=== PATIENT | female | born 1970 | race Caucasian/White ===

== ENCOUNTER 2020-09-09 13:03 | Outpatient (REF) | payer MEDICARE, MEDICAID, SELFPAY ==
[2020-09-12 23:57] LABS: HPV mRNA E6/E7 Not Detected (Not Detected)
== END 2020-09-09 13:04 | disposition home or self-care (01) ==
LOC: HO.LNP 13:03
PROVIDERS: Visit Provider Obstetrics & Gynecology
DX: Z12.4 Encounter for screening for malignant neoplasm of cervix (principal); R35.0 Frequency of micturition
CPT/HCPCS: 87086; 87624; 88142

== ENCOUNTER 2021-07-04 16:02 | Outpatient (REF) | payer MEDICARE, MEDICAID, SELFPAY ==
--- NOTE | ~2021-07-04 | MM_ITS ---
EXAMINATION: MM SCREENING DIGITAL BREAST TOMOSYNTHESIS, BILATERAL CLINICAL INFORMATION: Screening. Asymptomatic. The lifetime risk of breast cancer based on the Tyrer-Cuzick Model is 10%. COMPARISON: Mammography: 12/12/2015, 11/08/2014 TECHNIQUE: Digital breast tomosynthesis is performed in both the craniocaudal and mediolateral oblique views along with computer-aided detection (CAD). Synthesized 2D images are generated from the tomosynthesis. FINDINGS: There are scattered areas of fibroglandular density (ACR BI-RADS breast composition Category b). There are no significant masses, abnormal calcifications, or other abnormalities. Dystrophic calcification posterior medial left breast related to old shunt tubing again partly visualized. The axilla and skin contours are unremarkable. MM/MM tomosynthesis screening BI IMPRESSION: No mammographic evidence of malignancy. ASSESSMENT: BI-RADS 2: Benign RECOMMENDATION: Routine annual mammography screening. This patient's information was entered into a reminder system with a target due date for their next mammogram.
== END 2021-07-04 16:03 | disposition home or self-care (01) ==
LOC: HO.MAMMO 16:02
PROVIDERS: Visit Provider Internal Medicine
DX: Z12.31 Encounter for screening mammogram for malignant neoplasm of breast (principal)
CPT/HCPCS: 77063; 77067

== ENCOUNTER 2022-07-23 13:51 | Outpatient (REF) | payer MEDICARE, MEDICAID, SELFPAY ==
--- NOTE | ~2022-07-23 | MM_ITS ---
EXAMINATION: MM SCREENING DIGITAL BREAST TOMOSYNTHESIS, BILATERAL CLINICAL INFORMATION: Screening. Asymptomatic. The lifetime risk of breast cancer based on the Tyrer-Cuzick Model is 11.3%. COMPARISON: Mammography: July 04, 2021 and studies dating back to May 20, 2010 TECHNIQUE: Digital breast tomosynthesis is performed in both the craniocaudal and mediolateral oblique views along with computer-aided detection (CAD). Synthesized 2D images are generated from the tomosynthesis. FINDINGS: There are scattered areas of fibroglandular density (ACR BI-RADS breast composition Category b). There are no significant masses, abnormal calcifications, or other abnormalities. Dystrophic calcifications about the medial aspect of the left breast again seen. MM/MM tomosynthesis screening BI IMPRESSION: No significant changes from prior exam. ASSESSMENT: BI-RADS 2: Benign RECOMMENDATION: Routine annual mammography screening. This patient's information was entered into a reminder system with a target due date for their next mammogram.
== END 2022-07-23 13:52 | disposition home or self-care (01) ==
LOC: HO.MAMMO 13:51
PROVIDERS: Visit Provider Internal Medicine
DX: Z12.31 Encounter for screening mammogram for malignant neoplasm of breast (principal)
CPT/HCPCS: 77063; 77067

== ENCOUNTER 2023-08-23 12:13 | Outpatient (REF) | payer MEDICARE, MEDICAID, SELFPAY ==
--- NOTE | ~2023-08-23 | MM_ITS ---
EXAMINATION: MM SCREENING DIGITAL BREAST TOMOSYNTHESIS, BILATERAL CLINICAL INFORMATION: Screening. Asymptomatic. COMPARISON: Mammography: This study is compared with prior exams dating back to 2016. TECHNIQUE: Digital breast tomosynthesis is performed in both the craniocaudal and mediolateral oblique views along with computer-aided detection (CAD). Synthesized 2D images are generated from the tomosynthesis. FINDINGS: There are scattered areas of fibroglandular density (ACR BI-RADS breast composition Category b). There are no significant masses, abnormal calcifications, or other abnormalities. MM/MM tomosynthesis screening BI IMPRESSION: No mammographic evidence of malignancy. ASSESSMENT: BI-RADS BI-RADS 1 - Negative RECOMMENDATION: Routine annual mammography screening. 1 year F/U This examination should not preclude the clinical evaluation of a suspicious palpable abnormality. This patient's information was entered into a reminder system with a target due date for their next mammogram.
== END 2023-08-23 12:14 | disposition home or self-care (01) ==
LOC: HO.MAMMO 12:13
PROVIDERS: PCP Internal Medicine; Visit Provider Internal Medicine
DX: Z12.31 Encounter for screening mammogram for malignant neoplasm of breast (principal)
CPT/HCPCS: 77063; 77067

== ENCOUNTER → 2023-08-23 12:15 | Outpatient (BNV) | payer MEDICARE, MEDICAID, SELFPAY | PROVIDERS: PCP Internal Medicine; Visit Provider Radiology Diagnostic Radiology | DX: Z12.31 Encounter for screening mammogram for malignant neoplasm of breast (principal) | CPT/HCPCS: 77063; 77067 ==

== ENCOUNTER 2024-09-11 13:44 | Outpatient (REF) | payer MEDICARE, MEDICAID, SELFPAY ==
--- NOTE | ~2024-09-11 | MM_ITS ---
EXAMINATION: MM SCREENING DIGITAL BREAST TOMOSYNTHESIS, BILATERAL CLINICAL INFORMATION: Screening. Asymptomatic. COMPARISON: Mammography: Comparison is made with available priors TECHNIQUE: Digital breast mammography with tomosynthesis is performed in both the craniocaudal and mediolateral oblique views along with computer-aided detection (CAD). FINDINGS: There are scattered areas of fibroglandular density (ACR BI-RADS breast composition Category b). Calcified Stent/shunt overlies and obscures the posterior inner left breast. There are no significant masses, abnormal calcifications, or other abnormalities. MM/MM tomosynthesis screening BI IMPRESSION: No mammographic evidence of malignancy. ASSESSMENT: BI-RADS BI-RADS 2 - Benign Findings RECOMMENDATION: Routine annual mammography screening. 1 year F/U This examination should not preclude the clinical evaluation of a suspicious palpable abnormality. This patient's information was entered into a reminder system with a target due date for their next mammogram. Electronically signed by: Ashley Tompkins DO 09/17/2024 06:05 PM BRYAN
== END 2024-09-11 13:45 | disposition home or self-care (01) ==
LOC: HO.MAMMO 13:44
PROVIDERS: PCP Internal Medicine; Visit Provider Internal Medicine
DX: Z12.31 Encounter for screening mammogram for malignant neoplasm of breast (principal)
CPT/HCPCS: 77063; 77067

== ENCOUNTER → 2024-09-11 14:00 | Outpatient (BNV) | payer MEDICARE, MEDICAID, SELFPAY | PROVIDERS: PCP Internal Medicine; Visit Provider Internal Medicine | DX: Z12.31 Encounter for screening mammogram for malignant neoplasm of breast (principal) | CPT/HCPCS: 77063; 77067 ==

== ENCOUNTER 2024-10-19 15:29 | Outpatient (AMB) | payer MEDICARE, MEDICAID, SELFPAY ==
--- OUTSIDE RECORDS SUMMARY | 2024-10-19 15:33 | XMS_ITS ---
Author Organization [facility] Address Unknown Allergies, Adverse Reactions, Alerts Substance Reaction Status Noted Date Resolved Date Latex active 08/12/2022 Problems Problem Status Start Date End Date DISPLACED FRACTURE OF MEDIAL MALLEOLUS OF LEFT TIBIA, SUBSEQUENT ENCOUNTER FOR CLOSED FRACTURE WITH ROUTINE HEALING (Primary) (S82.52XD - ICD-10-CM) ACTIVE 08/12/2022 MUSCLE WEAKNESS (GENERALIZED) (M62.81 - ICD-10-CM) ACT AVINASH 08/12/2022 UNSTEADINESS ON FEET (R26.81 - ICD-10-CM) ACTIVE 08/12/2022 OTHER ABNORMALITIES OF GAIT AND MOBILITY (R26.89 - ICD-10-CM) ACTIVE 08/12/2022 HYPOTHYROIDISM, UNSPECIFIED (E03.9 - ICD-10-CM) ACTIVE 08/12/2022 ESSENTIAL (PRIMARY) HYPERTENSION (I10 - ICD-10-CM) ACT AVINASH 08/12/2022 HYPERLIPIDEMIA, UNSPECIFIED (E78.5 - ICD-10-CM) ACTIVE 08/12/2022 Encounters Encounter Performer Performer Role Encounter Diagnoses Location Date Discharge - Discharged to home or self care - Board and care/assisted living/[facility] 08/12/2022 05:01 pm EST - 08/27/2022 02:30 pm EST Social History
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
--- OUTSIDE RECORDS SUMMARY | 2024-10-19 15:33 | XMS_ITS | Encounter Summary ---
[facility] Address [address] [place] [address] Care Team Providers Care Curriculum Director Name Role Phone Kayy Lindsey MD Primary Care Provider [phone] Reason for Visit * Reason Onset Date Comments Wound Infection 09/25/2024 Encounter Details Date Type Department Care Team (Late st Contact Info) Description 09/25/2024 Telephone Internal Medicine - [place] [address] [facility] [address] [place] [phone] Kayy Lindsey MD 175 [facility] [address] [place] [phone] Wound Infection Social History Tobacco Use Types Packs/Day Years [...] on file documented as of this encounter Progress Notes * Mary Caldera RN - 09/25/2024 3:44 PM EST Call to pt comp field case manager Rachel # [phone], spoke to Rachel Pt has a infected area on leg that now looks infected. Scheduled pt for next day appt * Jesys M Jorge - 09/25/2024 3:32 PM EST Patient cut herself while shaving leg last week- now area appears to be infected. Open wound - red parameter and moist Area documented in this encounter Plan of Treatment Upcoming Encounters Date Type Department Care Team (Late st Contact Info) Description 10/30/2024 2:30 PM EST Office Visit Obstetrics & Gynecology - [facility] [address] [place] [phone] Kristina Sanchez CNM [address] [place] [phone] 11/07/2024 11:45 AM EST Office Visit Urogynecology [address] [phone] Allegra Denise MD [address] [place] [address] [address] [place] [address] 11/13/2024 2:45 PM EDT Office Visit Internal Medicine - [place] 175 [facility] [address] [place] [phone] Kayy Lindsey MD [address] [phone] documented as of this encounter Visit Diagnoses Not on filedocumented in this encounter Care Teams Curriculum Director Relationship Specialty Start Date End Date Kayy Lindsey MD [address] [phone] PCP - General Internal Medicine 07/11/18 documented as of this encounter
--- OUTSIDE RECORDS SUMMARY | 2024-10-19 15:33 | XMS_ITS | Clinical Summary ---
Author Organization 175 [facility] Address [address] [place] [address] Phone Care Team Providers Care Marklogic Developer Name Role Phone Kayy Lindsey MD Primary Care Provider [phone] Allergies Active Allergy Reactions Criticality Noted Date Comments Latex 06/29/2016 Other 05/04/2019 SEASONAL ALLERGIES Medications acetaminophen (TYLENOL) 325 mg tablet Take 1 Tablet by mouth every 6 hours as needed for Pain. 03/16/20 24 Active albuterol HFA (PROAIR HFA ; PROVENTIL HFA ; VENTOLIN HFA) 90 mcg/actuation inhaler Inhale 2 Puffs into the lungs every 6 hours as needed for Cough or Wheezing. 12/03/19 24 Active ascorbic acid (VITAMIN C) 1,000 mg tablet TAKE 1 TABLET BY MOUTH DAILY. 05/18/20 24 Active aspirin 81 mg EC tablet Take 1 Tablet by mouth daily. 05/15/20 24 Active cholecalciferol (VITAMIN D-3) 25 mcg (1,000 unit) capsule TAKE 1 CAPSULE BY MOUTH DAILY EVERY MORNING. 01/03/20 24 Active clotrimazole-be tamethasone (LOTRISONE) 1-0.05 % cream Apply to area sparingly twice a day for up to two weeks 02/16/20 24 026 Active phenylephrine-D M-APAP (VICKS DAYQUIL MULTI-SYMPTOM) 5-10-325 mg capsule Take 5 mL by mouth 2 times daily. 01/24/20 16 Active fexofenadine (JEANNE) 180 mg tablet Take 1 Tablet by mouth daily as needed for Other (allergies). 12/03/19 24 Active FLUoxetine (PROzac) 20 mg capsule Take 1 Capsule by mouth daily. 12/03/19 24 Active fluticasone propionate (FLONASE) 50 mcg/actuation nasal spray 1 Mobile by Nasal route daily. 12/03/19 24 Active dextromethorpha n-guaiFENesin (Diabetic Tussin DM) 10-100 mg/5 mL liquid Take 10 mL by mouth every 6 hours as needed for Cough. 12/03/19 24 Active ibuprofen (ADVIL,MOTRIN) 400 mg tablet Take 1 Tablet by mouth 2 times daily as needed for Pain. 03/26/20 23 Active lamoTRIgine (LaMICtal) 200 mg tablet Take 1 Tablet by mouth 2 Times Daily. 04/29/20 22 Active lamoTRIgine (LaMICtal) 50 mg dispersible tablet Take 1 Tablet by mouth 2 Times Daily. 04/29/20 22 Active levothyroxine (SYNTHROID, LEVOTHROID) 50 mcg tablet TAKE 1 TABLET BY MOUTH DAILY IN THE MORNING ON AN EMPTY STOMACH. 05/18/20 24 Active propranoloL (INDERAL) 20 mg tablet TAKE 1 TABLET BY MOUTH TWICE DAILY 01/03/20 24 Active polyethylene glycol (MIRALAX) 17 gram packet Take 17 g by mouth daily as needed for Constipation . 03/29/20 24 Active traZODone (DESYREL) 50 mg tablet 07/27/20 24 Active medroxyPROGESTE Marco (PROVERA) 10 mg tablet Take 1 tablet (10 mg total) by mouth 1 (one) time each day. for 10 days 10 tablet 08/17/20 24 Active solifenacin (VESICARE) 5 mg tablet Take 1 tablet (5 mg total) by mouth 1 (one) time each day. Swallow tablet whole; do not crush, chew, or split. 90 each 08/21/20 24 025 Active simvastatin (ZOCOR) 20 mg tablet Take 1 tablet (20 mg total) by mouth at bedtime. at bedtime 28 tablet 1 01/29/20 25 Active vibegron (Gemtesa) 75 mg tablet tabletIndicatio ns:OAB (overactive bladder) Take 1 tablet (75 mg total) by mouth 1 (one) time each day. 30 each 10/10/19 25 025 Active simvastatin (ZOCOR) 20 mg tablet TAKE 1 TABLET BY MOUTH DAILY AT BEDTIME 04/21/20 24 025 Discontinued vibegron (Gemtesa) 75 mg tablet tablet TAKE 1 TABLET BY MOUTH DAILY *ORIGINAL CONTAINER* 05/18/20 24 025 Discontinued(Re order) cephalexin (KEFLEX) 500 mg capsuleIndicati ons:Cellulitis and abscess of left lower extremity Take 1 capsule (500 mg total) by mouth 2 (two) times a day for 7 days. 14 each 09/26/19 25 025 Active Problems Problem Noted Date Diagnosed Date fall04/29/2022 Mild intermittent asthma without complication Obstructive sleep apnea 04/02/2019 Overview (06/21/2024): [facility] Polysomnogram: Date 03/26/2019; Wt 170#; BMI 34; SE 23%; SM 37%; REM 0%; RDI 8 (AHI 5), Central apneas 0; Obstructive apneas 0; Mixed apneas 0; hypopneas 11; RERAs 6; average oxygen saturation 92% (lowest 84% - withput saturations <88% for 5% or more of study); PLMs 0. - Obstructive Sleep Apnea - mild overall; no REM; mostly hypopneas; without sleep related hypoventilation by 2019 polysomnogram. Venous insufficiency (chronic) (peripheral) 02/2019 Varicose veins with pain 11/09/2018 Vitamin D deficiency 06/29/2018 Depression with anxiety 04/04/2018 HTN (hypertension) 04/04/2018 Hypothyroidism 04/04/2018 Hyperlipidemia 04/04/2018 Allergic rhinitis 04/04/2018 Seizure disorder 04/04/2018 GERD (gastroesophageal reflux disease) 7 Chronic pain 06/28/2017 Stress incontinence, female 03/11/2017 Leg edema 03/11/2017 Urinary leakage 03/11/2017 Aggression 07/01/2016 Encounters Date Type Department Care Team Description 09/26/2024 11:15 AM EST Office Visit Internal Medicine - [place] 175 [facility] [address] [place] [address] Elaine Moses NP Cellulitis and abscess of left lower extremity (Primary Dx) 09/25/2024 Telephone Internal Medicine - [place] [address] [facility] [address] [place] [address] Kayy Lindsey MD Wound Infection from Last 3 Months Immunizations Name Administration Dates Next Due Influenza Quadrivalent, 0.5m l, preservative free (Fluarix; FluLaval; Fluzone) ages 6mo and older (Afluria) 3yo and older 06/18/2020 Influenza trivalent, 0.5mL (Fluad) 65yo and olde r 06/24/2019,06/28/2017 Influenza, live, intranasal, quadrivalent (FluMist) 2yo to less than 50yo 06/26/2022 Td Tetanus diptheria (Tdvax) 7yo and older 02/21 Surgical History Surgery Date Site/Laterality Comments OTHER SURGICAL HISTORY PROCEDURE: HISTORY OTHER; COMMENT: Creation Of Ventriculo-Peritoneal CSF Shunt Medical History Medical History Date Comments GERD (gastroesophageal reflux disease) DX:GERD (gastroesophageal reflux disease) Aggression 07/01/2016 DX:Aggression Depression with anxiety 04/04/2018 DX:Depre ssion with anxiety HTN (hypertension) 04/04/2018 DX:HTN (hyper tension) Hyperlipidemia 04/04/2018 DX:Hyperlipidemi a Hypothyroidism 04/04/2018 DX:Hypothyroidis m Allergic rhinitis 04/04/2018 DX:Allergic rh initis Seizure disorder (CMS/HCC) 04/04/2018 DX:Se izure disorder (HCC) Stress incontinence, female 03/11/2017 DX:S tress incontinence, female Urinary leakage 03/11/2017 DX:Urinary leaka ge Leg edema 03/11/2017 DX:Leg edema Chronic pain 06/28/2017 DX:Chronic pain Vitamin D deficiency 06/29/2018 DX:Vitamin D deficiency Varicose veins with pain 11/09/2018 DX:Vari cose veins with pain Venous insufficiency (chroni c) (peripheral) 11/09/2018 DX:Venous insufficiency (chr onic) (peripheral) Family History Medical History Relation Name Comments Breast cancer Neg Hx Colon cancer Neg Hx Relation Name Status Comments Father Mother Alive Social History Tobacco Use Types Packs/Day Years Used Date Smoking Tobacco: Never Smokeless Tobacco: Never Alcohol Use Standard Drinks/Week Comments No 0 (1 standard drink = 0.6 oz pur e alcohol) Comments Unknown Sex and Gender Information Value Date Recorded Sex Assigned at Not on file Legal Sex Female 5:02 PM EST Gender Identity Not on file Sexual Orientation Not on file Obstetrics History Last Filed Vital Signs Vital Sign Reading Time Taken Comments Blood Pressure 112/68 09/26/2024 11:15 AM EST Pulse 63 09/26/2024 11:15 AM EST Temperature - - Respiratory Rate - - Oxygen Saturation 98% 09/26/2024 11:15 AM EST Inhaled Oxygen Concentration - - Weight 77.1 kg (170 lb) 09/26/2024 11:15 AM EST Height 160 cm (5' 3 ) 06/09/2024 2:24 PM EDT Body Mass Index 30.11 06/09/2024 2:24 PM EDT Plan of Treatment Upcoming Encounters Date Type Department Care Team (Late st Contact Info) Description 10/30/2024 2:30 PM EST Office Visit Obstetrics & Gynecology - [facility] [address] [place] [id number] Kristina Sanchez CNM [address] [place] [address] 11/07/2024 11:45 AM EST Office Visit Urogynecology [address] [phone] Allegra Denise MD [address] [facility] [address] [place] [address] 11/13/2024 2:45 PM EDT Office Visit Internal Medicine [facility] 175 [facility] [address] [place] [address] Kayy Lindsey MD 175 [facility] [address] [place] [phone] Health Maintenance Due Date Last Done Comments Hepatitis B Vaccines (1 of 3 - 19+ 3-dose series) 1987 Pneumococcal Vaccine: 50+ Years (1 of 2 - PCV) 1987 Pneumococcal Vaccine: Pediatrics (0 to 5 Years) and At-Risk Patients (6 to 64 Years) (1 of 2 - PCV) 1987 DTaP,Tdap,and Td Vaccines (2 - Td or Tdap) 03/21/2013 02/21/2013 Zoster Vaccines (1 of 2) 2018 Depression Screening 08/15/2022 HIV Screening 08/15/2022 Hepatitis C Screening 08/15/2022 Medicare Annual Wellness Visit 08/15/2022 Social Influencers of Health Screening 08/15/2022 Influenza Vaccine (#1) 2024 , 06/18/2020, 06/24/2019, Additional history exists Hypertension/CHF/CAD Annual BMP Blood Test 06/10/2025 06/10/2024, 06/10/2024 Breast Cancer Screening 08/23/2025 08/23/2023, 01/26 Cervical Cancer Screening: HPV 06/08/2027 06/08/2022 Cholesterol Screening (Lipid Panel) 05/06/2028 05/06/2023 Colorectal Cancer Screening: Colonoscopy 08/08/2029 08/08/2019 COVID-19 Vaccine Completed 08/07/2024, 01/2022, 07/27/2021, Additional history exists HIB Vaccines Aged Out No longer eligi ble based on patient's age to complete this topic HPV Vaccines Aged Out No longer eligi ble based on patient's age to complete this topic Hepatitis A Vaccines Aged Out No long er eligible based on patient's age to complete this topic IPV Vaccines Aged Out No longer eligi ble based on patient's age to complete this topic MMR Vaccines Aged Out No longer eligi ble based on patient's age to complete this topic Meningococcal ACWY Vaccine Aged Out N o longer eligible based on patient's age to complete this topic Meningococcal B Vacine Aged Out No lo nger eligible based on patient's age to complete this topic RSV Immunization Patients Under 20 months Aged Out No longer eligible based on patient's age to complete this topic Varicella Vaccines Aged Out No longer eligible based on patient's age to complete this topic Procedures Procedure Name Priority Date/Time Associated Diagnosis Comments ANNUAL BMP BLOOD TEST Routine 06/10/2024 LIPID PANEL Routine 05/06/2023 HPV Routine 06/08/2022 COLONOSCOPY Routine 08/08/2019 SCR MAMMO BI INCL CAD Routine 01/26/2019 10:59 AM EDT Stress incontinence (female) (male) Mixed hyperlipidemia Hypothyroidism, unspecified Essential (primary) hypertension Epilepsy, unspecified, not intractable, without status epilepticus (CMS/HCC) from Last 3 Months or Most Recently Relevant to Health Maintenance Results * Annual BMP Blood Test (06/10/2024) Pathologist [facility] Annual BMP Blood Test abstracted [facility] Provider HEALTH MAINTENANCE Final Result * Lipid panel (05/06/2023) [facility] LDL/HDL Ratio 2 0 - 4 Triglycerides 63 0 - 150 mg/dL Cholesterol 156 0 - 200 mg/dL HDL 66 >=40 mg/dL LDL Cholesterol 78 0 - 100 mg/dL Blood Venous blood specimen / Unknown Result [facility] Provider LAB BLOOD ORDERABLES Natalia l Result * Cervical Cancer Screening: HPV (06/08/2022) Pathologist [facility] Cervical Cancer Screening: HPV negative, abstracted [facility] Provider HEALTH MAINTENANCE Final Result * Colonoscopy (08/08/2019) Pathologist [facility] Colonoscopy no interpretation , abstracted Anatomical Region Laterality Modality Other [facility] Provider HEALTH MAINTENANCE Final Result * SCR MAMMO BI INCL CAD (01/26/2019 10:59 AM EDT) Anatomical Region Laterality Modality Radiographic Shaista ging 11/22/2018 2:44 PM EDT Narrative 01/26/2019 11:14 AM EDT This is a summary report. The complete report is available in the patient's medical record. If you cannot access the medical record, please contact the sending organization for a detailed fax or copy. Baseline screening, full field digital mammography, reviewed with CAD. ??The breasts are composed of fatty and fibroglandular tissue. ??No suspicious mass, architectural distortion or suspicious calcifications are identified. IMPRESSION: : No mammographic evidence of malignancy. BIRADS 1-Negative; N. 5 year breast cancer risk assessment 1.2 % Lifetime breast cancer risk assessment 10.8 % Breast cancer risk category Low (<15%) Procedure Note Gonzalo Skinner Sergo - 08/25/2022 This is a summary report. The complete report is available in thepatient's medical record. If you cannot access the medical record, pleasecontact the sending organization for a detailed fax or copy. Baseline screening, full field digital mammography, reviewed with CAD.The breasts are composed of fatty and fibroglandular tissue. Nosuspicious mass, architectural distortion or suspicious calcifications areidentified. IMPRESSION: : No mammographic evidence of malignancy. BIRADS 1-Negative; N. 5 year breast cancer risk assessment 1.2 % Lifetime breast cancer risk assessment 10.8 % Breast cancer risk category Low (<15%) [facility] Justin Lindsey MD IMG XR PROCEDURES Final Result from Last 3 Months or Most Recently Relevant to Health Maintenance Insurance MEDICARE MEDICAID - [place] Care Teams Marklogic Developer Relationship Specialty Start Date End Date Kayy Lindsey MD [address] [address] PCP - General Internal Medicine 07/11/18
[2024-10-19 15:36] VITALS: BP 122/70; PULSE 72; TEMP 36.6; O2SAT 98
--- NOTE | 2024-10-19 15:36 | MHC.OFFWIV ---
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 Pt lives in a assisted - this morning she she tripped on her Sandles and fell to the ground. [facility] Medical History Asthma HTN (hypertension) Surgical History H/O brain surgery Family History Father Diabetes Maternal Uncle Diabetes Maternal Grandmother Diabetes Social History Alcohol intake: never Patient Tobacco Use Status: Never used Tobacco Review of Systems Const All systems reviewed & are unremarkable except as noted in HPI and below Physical Exam Vital Signs: Last Vital Signs Temp 97.9 F 10/19/24 15:36 Pulse 72 10/19/24 15:36 BP 122/70 10/19/24 15:36 Pulse Ox 98 10/19/24 15:36 Const General: cooperative, comfortable and no acute distress Nutritional Appearance: obese Orientation/consciousness: patient oriented x3 Limitations: behavioral limitations and ambulation with walker (Due to frequent Falls. ) Neuro General: patient oriented x3 and moves all extremities Extrem Right lower extremity: normal to inspection and full ROM Left lower extremity: knee Details: normal to inspection, tenderness Location: of the patella Details: laterally and normal ROM; no swelling, no crepitus and no deformity Assessment & Plan Assessment & Plan (1) Left anterior knee pain: Code(s): M25.562 - Pain in left knee Plan: OTC Acetaminophen for pain relief Ice/Hot Rest the joint. Coding Level of Care Code Est Pt Level 4 (87962) Diagnoses Left anterior knee pain M25.562 Time Spent (min) 20
== END 2024-10-19 16:04 | disposition home or self-care (01) ==
PROVIDERS: PCP Internal Medicine; Visit Provider Nurse Practitioner Family
DX: M25.562 Pain in left knee (principal)

== ENCOUNTER → 2024-10-19 15:29 | Outpatient (BNVA) | payer MEDICARE, MEDICAID, SELFPAY | PROVIDERS: PCP Internal Medicine | DX: M25.562 Pain in left knee (principal) | CPT/HCPCS: 99212 ==

== ENCOUNTER 2025-02-19 08:41 | Outpatient (AMB) | payer MEDICARE, MEDICAID, SELFPAY ==
[2025-02-19 08:44] VITALS: BP 112/72; PULSE 97; TEMP 36.6; O2SAT 99; BMI 32.8
--- NOTE | 2025-02-19 08:44 | AM.OFFWIN_ITS ---
Intake Vital Signs 02/19/25 08:44 Height 5 ft 1 in Weight 173 lb 6 oz BMI 32.8 BP 112/72 Blood Pressure Location Rt brachial Position Sitting Pulse 97 Pulse Source Pulse Oximeter Temp 98 F Pulse Oximetry (%) 99 Oxygen Delivery Method Room Air Intake Visit Reasons: EP injured LT side of her face due to a fall Patient Tobacco Use Status: Never used Tobacco Accompanied by: Other Relationship Allergies latex [LATEX] Allergy (Intermediate, Verified 02/19/25 08:48) RASH perfume Allergy (Intermediate, Verified 02/19/25 08:48) RASH Latex Exam Gloves Allergy (Intermediate, Uncoded 09/09/20 13:12) rash Latex Gloves Allergy (Intermediate, Uncoded 09/09/20 13:12) rash Do you need a note to return to daycare/school/sports/work: Yes HPI HPI Comments History of Present Illness Details Patient is a 54-year-old female here with her wind up worker complaining of a fall which occurred yesterday at her mother's house. The patient tells me she was trying to help her mother was something and was sitting on the edge of the bed when she fell onto the floor in hit the carpeted floor with the left side of her face. She states she is very sensitive to pain and it has been very sensitive over the last day. She states that yesterday was much more red than it is today. She has not tried taking any medication to make it feel better and she has not used any ice. She tells me she splashed cold water on it twice but it was painful so she stopped. She denies any headaches dizziness nausea or vomiting. Her wind up worker tells me that she woke up this morning and ate her normal breakfast and has been ambulating as normal with her walker. She also tells me there is no change in her personality and she appears to be at her baseline. Maura is asking if she can take today off from her program. [facility] Medical History HTN (hypertension) Asthma Surgical History H/O brain surgery Family History Father Diabetes Maternal Uncle Diabetes Maternal Grandmother Diabetes Social History Alcohol intake: never Patient Tobacco Use Status: Never used Tobacco Review of Systems Const All systems reviewed & are unremarkable except as noted in HPI and below Physical Exam Vital Signs: Last Vital Signs Temp 98 F 02/19/25 08:44 Pulse 97 02/19/25 08:44 BP 112/72 02/19/25 08:44 Pulse Ox 99 02/19/25 08:44 Oxygen Delivery Method Room Air 02/19/25 08:44 BMI result Body Mass Index 32.8 Assessment & Plan Assessment & Plan (1) Abrasion of skin of face: Code(s): S00.81XA - Abrasion of other part of head, initial encounter Plan: Filled out alf paperwork instructing patient to use ice 15 minutes at a time up to every 4 hours as needed for pain. She can also use some bacitracin which I provided for her twice a day on the abrasions for 7 days. I also am going to give her a note so she can skip her program today and rest. She should be able to go back to her program tomorrow. And I did fill out the paperwork for her alf. Coding Level of Care Code New Pt Level 3 (25006) Diagnoses Abrasion of skin of face S00.81XA
--- OUTSIDE RECORDS SUMMARY | 2025-02-19 09:05 | XMS_ITS ---
Author Organization [facility] Care Team Providers Care Body Finisher Name Role Phone Ирина Ashrafth Unavailable Unavailable Amish Alva Unavailable Unavailable Sary Salamanca Unavailable Unavailable Salo Mckeon Unavailable Unavailable Kirti Richmond Unavailable Unavailable Allergies and adverse reactions Code CodeSystem Substance Reaction Severity StartDate Concern Status Latex Unknown 08/12/2022 active Care Team Name Role Address Phone Organization Dates Amish Alva PCP [address], [place], [address], [place] (Office): [facility] 08/12/2022 - 08/27/2022 Suzette Ashraf [address], [place], [address], [place] (Office): [facility] 08/12/2022 - 08/27/2022 Sary Salamanca [address], [place], [address], [place] (Office): [facility] 08/12/2022 - 08/27/2022 Salo Mckeon [address] [place], [address], [place] (Office): [facility] 08/12/2022 - 08/27/2022 Kirti Richmond [address] [place], [address], [place] (Office): [facility] 08/12/2022 - 08/27/2022 Mental Status Section Date Assessment Total Score Description 08/27/2022 BIMS 04 severe cognitiv e impairment CAM 0 No delirium ind icated PHQ-9 03 minimal depress ion 08/17/2022 BIMS 04 severe cognitiv e impairment CAM 0 No delirium ind icated PHQ-9 03 minimal depress ion Problems Problem # Description Date of onset Resolved Date Code CodeSystem Concern Status 1 DISPLACED FRACTURE OF MEDIAL MALLEOLUS OF LEFT TIBIA, SUBSEQUENT ENCOUNTER FOR CLOSED FRACTURE WITH ROUTINE HEALING 08/12/[address] active 2 ESSENTIAL (PRIMARY) HYPERTENSION 08/12/[address] active 3 HYPERLIPIDEMIA, UNSPECIFIED 08/12/[address] active 4 HYPOTHYROIDISM, UNSPECIFIED 08/12/[address] active 5 MUSCLE WEAKNESS (GENERALIZED) 08/12/[address] active 6 OTHER ABNORMALITIES OF GAIT AND MOBILITY 08/12/[address] active 7 UNSTEADINESS ON FEET 08/12/[id number] active Reason for Referral No Reasons for Referral Entered Social History Social History Observation Description Start Date End Date Code Code System Current Smoking Status Tobacco smoking consumption unknown 593158578 SNOMED CT Sex Assigned At Female 1970 47872-0 [facility] Gender Identity Vital Signs Code Code System Vitals Name Values and Units Timing Information 59051-3 [facility] Pain Level Value=0.0 08/27/2022 9279-1 [facility] Respiratory Rate Value=18.0 Units=/m in 08/27/2022 8462-4 [facility] Blood Pressure-Diastolic Value=77 Un its=mmHg 08/27/2022 8480-6 [facility] Blood Pressure-Systolic Yueli=477 Un its=mmHg 08/27/2022 8310-5 [facility] Body Temperature Value=97.9 Units=?? F 08/27/2022 8867-4 [facility] Heart rate Value=80.0 Units=/min 14772-4 [facility] O2 % BldC Oximetry Value=98.0 Units= % 08/27/2022 64208-1 [facility] Weight Kdchg=844.8 Units=Lbs 8302-2 [facility] Height Value=60.0 Units=Inches 08/14/2022
== END 2025-02-19 09:18 | disposition home or self-care (01) ==
PROVIDERS: PCP Internal Medicine; Visit Provider Physician Assistant
DX: S00.81XA Abrasion of other part of head, initial encounter (principal)

== ENCOUNTER → 2025-02-19 08:41 | Outpatient (BNVA) | payer MEDICARE, MEDICAID, SELFPAY | PROVIDERS: PCP Internal Medicine; Visit Provider Physician Assistant | DX: S00.81XA Abrasion of other part of head, initial encounter (principal) | CPT/HCPCS: 99202 ==